=== PATIENT | female | born 1975 | race Caucasian/White ===

== ENCOUNTER 2018-03-21 18:31 | Emergency (ER) | payer SELFPAY ==
[2018-03-21] MEDS: Oseltamivir 75 MG Cap PO ONE (19:13)
[2018-03-21] MEDS: Acetaminophen 500 MG Tab PO ONE (19:15)
[2018-03-21] MEDS: Oseltamivir 75 MG Cap ONE (19:17)
--- NOTE | 2018-03-21 19:18 | EDM.PDOC ---
ED HPI GENERAL MEDICAL PROBLEM - General Chief Complaint: General Stated Complaint: "cough and body aches Time Seen by Provider: 03/21/18 19:05 Source of Information: Reports: Patient History Limitations: Reports: No Limitations - History of Present Illness INITIAL COMMENTS - FREE TEXT/NARRATIVE: Patient presents with complaints of body aches, fevers and cough. Has had sinus congestion and headaches. Feels tired. Son recently diagnosed with Influenza A. Started noting the sinus congestion on but has had high fevers for the last 24 hours. Did take Sudafed yesterday but has not taken anything for the fever. Onset: Gradual Duration: Day(s): Location: Reports: Head, Chest, Generalized Quality: Reports: Ache Severity: Moderate Associated Symptoms: Reports: Cough, Fever/Chills, Malaise, Weakness. Denies: Chest Pain, Nausea/Vomiting, Shortness of Breath Treatments [employer]: Reports: Other (see below) (sudafed) - Related Data Allergies Allergy/AdvReac Type Severity Reaction Status Date / Time bee venom protein (honey bee) Allergy Rash Verified 03/21/18 18:45 doxycycline Allergy Rash Verified 03/21/18 18:45 Sulfa (Sulfonamide Allergy Rash Verified 03/21/18 18:45 Antibiotics) Home Meds: Home Meds Sertraline [Zoloft] 100 mg PO BEDTIME 03/21/18 [History] buPROPion [Wellbutrin SR] 100 mg PO DAILY 03/21/18 [History] Past Medical History Psychiatric History: Reports: Depression - Past Surgical History Other Endocrine Surgeries/Procedures: Biopsy done on right side of neck November 2017. Social & Family History - Tobacco Use Smoking Status *Q: Never Smoker ED ROS GENERAL - Review of Systems Review Of Systems: See Below Constitutional: Reports: Fever, Chills, Malaise, Weakness, Fatigue, Decreased Appetite HEENT: Reports: Rhinitis, Sinus Problem. Denies: Ear Pain, Throat Pain, Vertigo Respiratory: Reports: Cough. Denies: Shortness of Breath Cardiovascular: Denies: Chest Pain, Edema, Lightheadedness Endocrine: Reports: Fatigue GI/Abdominal: Denies: Abdominal Pain, Constipation, Diarrhea, Decreased Appetite , Nausea, Vomiting : Reports: No Symptoms Musculoskeletal: Reports: No Symptoms Skin: Reports: No Symptoms Neurological: Reports: No Symptoms ED EXAM, GENERAL - Physical Exam Exam: See Below Exam Limited By: No Limitations General Appearance: Alert, WD/WN, No Apparent Distress Ears: Normal External Exam, Normal TMs Nose: Normal Inspection, Normal Mucosa, Nasal Drainage Throat/Mouth: Normal Inspection, Other (posterior pharynx is erythematous) Head: Normocephalic Neck: Normal Inspection, Supple, Non-Tender Respiratory/Chest: No Respiratory Distress, Lungs Clear, Decreased Breath Sounds Cardiovascular: Regular Rate, Rhythm GI/Abdominal: Normal Bowel Sounds, Soft, Non-Tender Extremities: Normal Inspection Neurological: Alert, Oriented Skin Exam: Warm, Dry Course - Vital Signs Last Recorded V/S: Last Vital Signs Temp 103.3 F H 03/21/18 19:15 Pulse 110 H 03/21/18 18:56 Resp 20 03/21/18 18:56 BP 122/68 03/21/18 18:56 Pulse Ox 99 03/21/18 18:56 - Orders/Labs/Meds Meds: Medications Discontinued Medications Generic Name Dose Route Start Last Admin Trade Name Chuckieq PRN Reason Stop Dose Admin Acetaminophen 1,000 mg 03/21/18 19:12 03/21/18 19:15 Tylenol Extra Strength PO 03/21/18 19:13 1,000 mg ONETIME ONE Administration Oseltamivir Phosphate 75 mg 03/21/18 19:08 03/21/18 19:13 Tamiflu PO 03/21/18 19:09 75 mg ONETIME ONE Administration Oseltamivir Phosphate Confirm 03/21/18 19:02 03/21/18 19:17 Tamiflu Administered 03/21/18 19:03 Not Given Dose 75 mg .ROUTE .STK-MED ONE Departure - Departure Time of Disposition: 19:16 Disposition: Home, Self-Care 01 Clinical Impression: Influenza A - Discharge Information *PRESCRIPTION DRUG MONITORING PROGRAM REVIEWED*: No *COPY OF PRESCRIPTION DRUG MONITORING REPORT IN PATIENT JOSIE: No Instructions: Influenza, Adult, [id number] Forms: ED Department Discharge Additional Instructions: 1. Push fluids 2. Alternate tylenol with ibuprofen every 3 hours to control fever 3. Tamiflu 75 mg BID for 5 days 4. Rest 5. Return if symptoms worsen, unable to consume fluids or if concerns.
== END 2018-03-21 19:30 | disposition home or self-care (01) ==
LOC: CC.ED 18:31
DX: J10.1 Influenza due to other identified influenza virus with other respiratory manifestations (principal); Z91.030 Bee allergy status; Z88.2 Allergy status to sulfonamides
CPT/HCPCS: 87804; 99283; A9270-GY

== ENCOUNTER 2023-03-02 11:39 | Emergency (ER) | payer BC ==
[2023-03-02 12:25] VITALS: BP 101/58; PULSE 73
[2023-03-02 12:48] LABS: BASOPHILS ABSOLUTE AUTO 0.04 10^3/uL (0.00-0.50); BASOPHILS PERCENT AUTO 0.6 % (0-1); EOSINOPHILS ABSOLUTE AUTO 0.29 10^3/uL (0.00-1.50); EOSINOPHILS PERCENT AUTO 4.5 % (0-6); HEMATOCRIT 38.5 % (37.0-47.0); HEMOGLOBIN 12.4 g/dL (12.0-16.0); LYMPHOCYTES PERCENT AUTO 35.7 % (24-44); MEAN CORPUSCULAR HGB CONC 32.2 g/dL (32.0-36.0); MEAN CORPUSCULAR VOLUME 90.2 fL (83.0-97.0); MONOCYTES ABSOLUTE AUTO 0.33 10^3/uL (0.00-1.50); MONOCYTES PERCENT AUTO 5.1 % (0-10); NEUTROPHILS ABSOLUTE AUTO 3.48 x10^3/uL (1.80-8.00); NEUTROPHILS PERCENT AUTO 54.1 % (41-71); PLATELET COUNT,PLT 190 10^3/uL (150-400); RED BLOOD CELL COUNT 4.27 x10^6/uL (4.00-5.50); WHITE BLOOD CELL COUNT,WBC 6.4 10^3/uL (4.0-11.0)
[2023-03-02 13:18] LABS: ALANINE AMINOTRANSFERASE,ALT 26 U/L (12-78); ALBUMIN 3.6 g/dL (3.4-5.0); ALKALINE PHOSPHATASE 78 U/L (46-116); ASPARTATE AMNIOTRANSFERASE,AST 20 U/L (15-37); BILIRUBIN TOTAL 0.7 mg/dL (0.0-1.0); BLOOD UREA NITROGEN,BUN 9 mg/dL (7-18); CALCIUM 8.9 mg/dL (8.4-10.1); CARBON DIOXIDE,CO2 26 mmol/L (21-32); CHLORIDE,CL 103 mEq/L (98-106); CREATININE 0.7 mg/dL (0.6-1.0); EST CRCL DRUG DOSING (CG) 102.38 mL/min; GLUCOSE RANDOM 118 mg/dL (75-99); LIPASE 28 U/L (16-77); MAGNESIUM 1.8 mg/dL (1.8-2.4); POTASSIUM,K 3.5 mEq/L (3.5-5.0); PROTEIN TOTAL,TP 7.4 g/dL (6.4-8.2); SODIUM,NA 137 mEq/L (136-145)
[2023-03-02 13:21] LABS: ESTIMATED GFR 109 mL/min (>=60)
[2023-03-02] MEDS: Aluminum Hydroxide/Magnesium Hydroxide/Simethicone Susp 30 ML Cup PO ONE (13:24)
[2023-03-02 13:33] LABS: APPEARANCE,URINE CLEAR (CLEAR); BILIRUBIN,URINE NEGATIVE (NEGATIVE); COLOR,URINE YELLOW (YELLOW); GLUCOSE,URINE NEGATIVE (NEGATIVE); KETONES,URINE NEGATIVE (NEGATIVE); LEUKOCYTE ESTERASE,URINE NEGATIVE (NEGATIVE); NITRITE,URINE NEGATIVE (NEGATIVE); OCCULT BLOOD,URINE TRACE-INTACT (NEGATIVE); PROTEIN,URINE NEGATIVE (NEGATIVE); UROBILINOGEN,URINE 0.2 EU/dL (0.2-1.0)
[2023-03-02 13:40] LABS: EPITHELIAL CELLS,URINE MANY /HPF (NOT SEEN); RBC,URINE 0-5 /HPF (0-5); WBC,URINE 0-5 /HPF (0-5)
[2023-03-02 13:41] LABS: BACTERIA,URINE OCCASIONAL /HPF (NOT SEEN)
== END 2023-03-02 13:35 | disposition home or self-care (01) ==
LOC: CC.ED 11:39 → SUPCPDRO 11:39 → CC.ED 13:35
DX: R10.13 Epigastric pain (principal); Z88.1 Allergy status to other antibiotic agents; Z88.2 Allergy status to sulfonamides; Z91.030 Bee allergy status
CPT/HCPCS: 36415; 80053; 81001; 83690; 83735; 84484; 85025; 93005; 93010; 99284; A9270-GY

== ENCOUNTER 2023-10-04 17:05 | Emergency (ER) | payer BC, OTHER ==
[2023-10-04] MEDS: methylPREDNISolone Acetate 80 MG/ML SDV IM ONE (17:49)
== END 2023-10-04 18:09 | disposition home or self-care (01) ==
LOC: CC.ED 17:05
DX: J06.9 Acute upper respiratory infection, unspecified (principal); Z91.030 Bee allergy status; Z88.2 Allergy status to sulfonamides; Z88.8 Allergy status to other drugs, medicaments and biological substances; Z87.891 Personal history of nicotine dependence; Z79.899 Other long term (current) drug therapy
CPT/HCPCS: 96372; 99283; J1040